=== PATIENT | female | born 1945 | race Caucasian/White ===

== ENCOUNTER 2016-08-29 09:52 | Day surgery (SDC) | payer MEDICARE ==
[~2016-08-29 09:52] MED LIST: Acetaminophen TAB* 325 MG PO PRN; Buffered Lidocaine 1% SYRIN* 3 ML/SYR SYRINGE INTRADERM ONE
[2016-08-29] MEDS ORDERED: Midazolam* 1 MG/ML 2 ML VIAL (2 MG) ONE (12:56)
[2016-08-29 13:46] VITALS: BP 110/61
--- NOTE | 2016-08-29 16:09 | OP ---
DATE OF OPERATION: 08/29/2016 - [facility] DATE OF : 1945. SURGEON: Christiano Raya M.D. PREOPERATIVE DIAGNOSIS: Cataract right eye. POSTOPERATIVE DIAGNOSIS: Cataract right eye. OPERATIVE PROCEDURE: Phacoemulsification right eye with IOL. DESCRIPTION OF PROCEDURE: The patient was brought to the operating room after being given 1/2% Alcaine with epinephrine drops in the preoperative area. The eye was prepped and draped in the usual sterile fashion. Sterile drape and eyelid speculum were placed. Again, topical 1/2% Alcaine with epinephrine was given. A paracentesis incision was made at the 9 o'clock position with the No.75 blade. Clear cornea incision 2.2 x 2.2-mm was created at the 12 o'clock position starting at the anterior limbus using the 2.2-mm keratome. The anterior chamber was irrigated with 0.4 mL of 1% non-preservative intracameral lidocaine and filled with DisCoVisc. A capsulorrhexis was completed using the cystotome and the Utrata forceps. Hydrodissection was performed with balanced salt solution. The lens nucleus was removed with the Phacoemulsification handpiece without incident. Cortex was removed with the irrigation-aspiration handpiece. The capsular bag was re-inflated using DisCoVisc and an [id number] 15 implant was inserted with the shooter. The irrigation-aspiration handpiece was used to remove all residual DisCoVisc. The eye was refilled with balanced salt solution and the wound checked and found to be watertight. Topical Maxitrol drops were given. [id number]/[facility] #: [id number] [facility]
== END 2016-08-29 13:50 | disposition home or self-care (01) ==
LOC: OREAST 09:52
PROVIDERS: ATTEND Specialist
DX: H25.811 Combined forms of age-related cataract, right eye (principal); H43.813 Vitreous degeneration, bilateral; E03.9 Hypothyroidism, unspecified; Z85.3 Personal history of malignant neoplasm of breast
CPT/HCPCS: J2250; V2632

== ENCOUNTER 2016-09-12 08:16 | Day surgery (SDC) | payer MEDICARE ==
[~2016-09-12 08:16] MED LIST changes: -Buffered Lidocaine 1% SYRIN* 3 ML/SYR SYRINGE INTRADERM ONE; +Buffered Lidocaine 1% SYRIN* 5 ML/SYR SYRINGE INTRADERM ONE; +Cyclopentolate 1% OPTH.SOL* 2 ML BTL ONE; +Flurbiprofen 0.03% OPTH.SOL* 2.5 ML BTL ONE; +Lidocaine 1% MPF* 2 ML VIAL ONE; +Lidocaine 2% EPI 1:200000 MPF* 20 ML VIAL ONE; +Neomycin/Polymy/Dex OPTH.SUSP* MAXITROL 0.1% 5 ML ONE; +Phenylephrine 2.5% OPTH.SOL* 2 ML BTL ONE; +Povidone Iodine 5% OPTH* 30 ML BTL ONE; +Proparacaine 0.5% OPHTH.SOL* 15 ML BTL ONE; +acetaZOLAMIDE TAB* 250 MG ONE
[2016-09-12] MEDS ORDERED: Flurbiprofen 0.03% OPTH.SOL* 2.5 ML BTL ONE (09:37)
[2016-09-12] MEDS ORDERED: Proparacaine 0.5% OPHTH.SOL* 15 ML BTL ONE (09:37)
[2016-09-12] MEDS ORDERED: Povidone Iodine 5% OPTH* 30 ML BTL ONE (09:37)
[2016-09-12] MEDS ORDERED: acetaZOLAMIDE TAB* 250 MG ONE (09:37)
[2016-09-12] MEDS ORDERED: Neomycin/Polymy/Dex OPTH.SUSP* MAXITROL 0.1% 5 ML ONE (09:37)
[2016-09-12] MEDS ORDERED: Lidocaine 1% MPF* 2 ML VIAL ONE (09:37)
[2016-09-12] MEDS ORDERED: Cyclopentolate 1% OPTH.SOL* 2 ML BTL ONE (09:37)
[2016-09-12] MEDS ORDERED: Phenylephrine 2.5% OPTH.SOL* 2 ML BTL ONE (09:37)
[2016-09-12] MEDS ORDERED: Lidocaine 2% EPI 1:200000 MPF* 20 ML VIAL ONE (09:37)
[2016-09-12] MEDS ORDERED: Midazolam* 1 MG/ML 2 ML VIAL (2 MG) ONE (10:19)
[2016-09-12 10:53] VITALS: BP 131/71
--- NOTE | 2016-09-13 02:32 | OP ---
OPERATIVE NOTE: DATE OF OPERATION: 09/12/16 - [facility] [[email or web address]] DATE OF : [birth year] SURGEON: Christiano Raya M.D. PREOPERATIVE DIAGNOSIS: Cataract, left eye. POSTOPERATIVE DIAGNOSIS: Cataract, left eye. OPERATIVE PROCEDURE: Phacoemulsification, right eye, with IOL. DESCRIPTION OF PROCEDURE: The patient was brought to the operating room after being given 1/2% Alcaine with epinephrine drops in the preoperative area. The eye was prepped and draped in the usual sterile fashion. Sterile drape and eyelid speculum were placed. Again, topical 1/2% Alcaine with epinephrine was given. A paracentesis incision was made at the 3 o'clock position with the No.75 blade. Clear cornea incision 2.2 x 2.2-mm was created at the 6 o'clock position starting at the anterior limbus using the 2.2-mm keratome. The anterior chamber was irrigated with 0.4 mL of 1% non-preservative intracameral lidocaine and filled with DisCoVisc. A capsulorrhexis was completed using the cystotome and the Utrata forceps. Hydrodissection was performed with balanced salt solution. The lens nucleus was removed with the Phacoemulsification handpiece without incident. Cortex was removed with the irrigation-aspiration handpiece. The capsular bag was re-inflated using DisCoVisc and an [id number] 15.5 implant was inserted with the shooter. The irrigation-aspiration handpiece was used to remove all residual DisCoVisc. The eye was refilled with balanced salt solution and the wound checked and found to be watertight. Topical Maxitrol drops were given. [id number]/[facility] #: [id number] [facility]
== END 2016-09-12 11:00 | disposition home or self-care (01) ==
LOC: OREAST 08:16
PROVIDERS: ATTEND Specialist
DX: H25.812 Combined forms of age-related cataract, left eye (principal); H43.813 Vitreous degeneration, bilateral; Z85.3 Personal history of malignant neoplasm of breast; E03.9 Hypothyroidism, unspecified; M19.90 Unspecified osteoarthritis, unspecified site
CPT/HCPCS: A9270-GY; J2250; V2632

== ENCOUNTER 2018-01-07 06:25 | Day surgery (SDC) | payer MEDICARE ==
--- NOTE | 2017-12-30 09:13 | HP ---
AMENDED REPORT NOW INCLUDES COSIGNER DESIGNATION - ESIGNED BEFORE ADJUSTMENTS PREOPERATIVE HISTORY AND PHYSICAL: DATE OF SURGERY/ADMISSION: 01/07/18 ATTENDING SURGEON: Nazia Mckeon MD * (DICTATED BY ZEE BILLINGSLEY) PROCEDURE: Left long finger trigger release, left wrist carpal tunnel release, right index finger trigger release. CHIEF COMPLAINT: Left long finger triggering, left wrist carpal tunnel syndrome , right index finger triggering. HISTORY OF PRESENT ILLNESS: This is a 72-year-old female who has had problems with trigger fingers on both her left and right hand involving the long finger on the left and the index finger on the right. She has received cortisone injections in the past with some improvement; however, the symptoms have recurred. She has also been experiencing numbness and tingling in her left hand for nearly 5 years now consistent with carpal tunnel syndrome. She had a carpal tunnel release done on the right back in September 2015 and did very well with that. She is now interested in pursuing surgical intervention for all 3 of these problems. PAST MEDICAL HISTORY: 1. Hypothyroidism. 2. History of breast cancer with radiation therapy. PAST SURGICAL HISTORY: 1. Right carpal tunnel release. 2. Right middle finger trigger release. 3. Right shoulder surgery. 4. Appendectomy. 5. Breast lumpectomy and lymph node excision. 6. Left shoulder rotator cuff repair. CURRENT MEDICATIONS: 1. Aspirin 81 mg daily. 2. Fish oil 500 mg twice a day. 3. Levothyroxine sodium 75 mcg daily. 4. Multivitamin once a day. ALLERGIES: No known drug allergies. FAMILY HISTORY: Unknown as the patient was adopted. SOCIAL HISTORY: The patient is retired. 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 She is a former smoker, she quit approximately 40 years ago. Prior to that she smoked a half a pack a day for approximately 20 years. She denies recreational drug use. She does drink alcohol on occasion. REVIEW OF SYSTEMS: Negative for general, cephalic, cardiovascular, respiratory , GI, , other musculoskeletal, integumentary, endocrine, neurologic, hematologic symptoms. Infectious Disease is negative for history of MRSA, hepatitis C, HIV. No known anesthesia problems in the past. PHYSICAL EXAMINATION GENERAL: Well-developed, well nourished 72-year-old female in no acute distress. VITAL SIGNS: Height 5 feet 4.5 inches, weight 149 pounds. Pulse rate 76, blood pressure 120/72. HEENT: Normocephalic, atraumatic. Pupils are equal, round and reactive to light and accommodation. Extraocular movements are intact. NECK: Supple. No palpable lymph nodes. Throat is clear. PULMONARY: Lungs are clear to auscultation bilaterally. No wheezes, rales or rhonchi. CARDIOVASCULAR: Regular rate and rhythm. S1, S2. No murmurs, rubs or gallops. No edema. ABDOMEN: Positive bowel sounds. Soft, nontender. MUSCULOSKELETAL: On exam of her left hand, she has no visible muscular wasting. She has tenderness to palpation at the A1 mandi of the long finger and active triggering with range of motion. She has a positive median nerve compression test. Otherwise, she has good motion in her fingers and wrists. Sensation is intact to light touch throughout the hand. On exam of her right hand she has tenderness to palpation at the A1 mandi of the right index finger and triggering with range of motion. Neurovascular function is intact. NEUROLOGICAL: Alert and oriented x3. Cranial nerves II through XII are intact. Sensation is intact to light touch. IMPRESSION: Left long finger trigger finger, left wrist carpal tunnel syndrome and right index finger trigger finger. PLAN: The patient is scheduled to undergo a left long finger trigger release, left wrist carpal tunnel release, right index finger trigger release with Dr. Mckeon on 01/07/18. She will return to the office 10 days postop for followup and suture removal. A prescription for Ultracet was e-scribed to the patient's pharmacy for postoperative pain management. ZEE BILLINGSLEY [id number]/[facility] #: [id number] [facility]
[~2018-01-07 06:25] MED LIST changes: -Acetaminophen TAB* 325 MG PO PRN; +Buffered Lidocaine 0.9% SYRIN* 5 ML/SYR SYRINGE INTRADERM ONE; -Buffered Lidocaine 1% SYRIN* 5 ML/SYR SYRINGE INTRADERM ONE; -Cyclopentolate 1% OPTH.SOL* 2 ML BTL ONE; +Dexamethasone IV* 4 MG/ML 1 ML (4 MG) ONE; +Dexamethasone TAB* 4 MG PO ONE; +DiMENhydriNATE IV* 50 MG/ML VIAL IV PUSH PRN; +Famotidine IV* 10 MG/ML 2 ML (20 mg) IV ONE; +Famotidine IV* 10 MG/ML 2 ML (20 mg) ONE; -Flurbiprofen 0.03% OPTH.SOL* 2.5 ML BTL ONE; -Lidocaine 1% MPF* 2 ML VIAL ONE; -Lidocaine 2% EPI 1:200000 MPF* 20 ML VIAL ONE; +Naloxone* 0.4 MG/ML 1 ML VIAL IV PRN; -Neomycin/Polymy/Dex OPTH.SUSP* MAXITROL 0.1% 5 ML ONE; +Ondansetron ODT TAB* 4 MG ONE; +Ondansetron TAB* 4 MG PO ONE; +PROCHLORPERAZINE INJ 5 MG/ML 2 ML VIAL IV PRN; -Phenylephrine 2.5% OPTH.SOL* 2 ML BTL ONE; -Povidone Iodine 5% OPTH* 30 ML BTL ONE; -Proparacaine 0.5% OPHTH.SOL* 15 ML BTL ONE; -acetaZOLAMIDE TAB* 250 MG ONE; +fentaNYL* 50 MCG/ML 2 ML VIAL (100 MCG VIAL) IV PRN; +oxyCODONE/Acetamin 5/325 MG* TAB PO PRN
[2018-01-07] MEDS ORDERED: Dexamethasone TAB* 4 MG ONE (06:36)
[2018-01-07] MEDS ORDERED: Lidocaine 1% INJ* 10 MG/ML 30 ML SDV ONE (07:07)
[2018-01-07] MEDS ORDERED: KETAMINE HCL* 50 MG/ML 10 ML VIAL ONE (07:14)
[2018-01-07] MEDS ORDERED: fentaNYL* 50 MCG/ML 2 ML VIAL (100 MCG VIAL) ONE (07:14)
[2018-01-07] MEDS ORDERED: Midazolam* 1 MG/ML 5 ML VIAL (5 MG) ONE (07:15)
[2018-01-07] MEDS ORDERED: Ketorolac INJ* 30 MG/ML 1 ML VIAL ONE (07:46)
[2018-01-07] MEDS ORDERED: Lidocaine 2% PF * 5 ML VIAL ONE (07:46)
[2018-01-07] MEDS ORDERED: Propofol* 10 MG/ML 20 ML BTL IV PUSH ONE (07:46)
[2018-01-07 09:05] VITALS: BP 151/77
--- NOTE | 2018-01-08 01:57 | OP ---
DATE OF OPERATION: 01/07/18 - [facility] DATE OF : [birth year] SURGEON: Nazia Mckeon MD RN MENTAL HEALTH: ZEE Flores ANESTHESIA: Local MAC. PRE-OP DIAGNOSES: 1. Left long finger trigger finger. 2. Left carpal tunnel syndrome. 3. Right index finger trigger finger. POST-OP DIAGNOSES: 1. Left long finger trigger finger. 2. Left carpal tunnel syndrome. 3. Right index finger trigger finger. OPERATIVE PROCEDURE: Left long finger trigger release, left carpal tunnel release, right index finger trigger release. INDICATION FOR PROCEDURE: Silvina is a 72-year-old woman who has triggering and locking of her left middle and right index fingers and numbness and tingling in the left median nerve distribution. She presents for trigger finger releases, left long and right index and left carpal tunnel release. ESTIMATED BLOOD LOSS: Zero. TOURNIQUET TIME ON THE RIGHT: About 5 minutes. TOURNIQUET TIME ON THE LEFT: About 15 minutes. DESCRIPTION OF PROCEDURE: The patient was brought to the operating room, was given a sedation anesthetic and infiltration of total 20 cc of 1% plain lidocaine in the palm of both hands. The skin of both hands and forearms were prepped and draped in the usual sterile fashion. The left hand and forearm were exsanguinated and the tourniquet elevated to 250 mmHg. A transverse incision was made centered over the middle finger A1 mandi and was dissected through the subcutaneous tissue down to the A1 mandi. The digital nerve vascular bundles were retracted by the surgical supply assistant, Serenity Palma. The A1 mandi was incised longitudinally completely releasing the flexor tendons, which were in good condition. The wound was irrigated and the skin edges reapproximated with 4-0 nylon suture. Next, a longitudinal incision was made in the palm in line with ring finger. We dissected sharply through the subcutaneous tissue down through the transverse carpal ligament. The ligament was divided sharply with a knife and then more proximally with the scissors. The nerve was dissected free from surrounding tissue and there is an area of moderate compression in the mid portion of the ligament. The wound was irrigated and the skin edges reapproximated with 4-0 nylon suture. The wound was dressed with Xeroform, 4x4, Webril, and an Wilmer wrap. The tourniquet was released. Next, the right hand and forearm were exsanguinated and the tourniquet elevated to 250 mmHg. A transverse incision was made over the A1 mandi of the right index finger. We dissected bluntly through the subcutaneous tissue down to the A1 mandi. The mandi was incised longitudinally completely releasing the flexor tendons, which were in good condition. The wound was irrigated and the skin edges were reapproximated with 4-0 nylon suture. The wound was dressed with Xeroform, 4x4, Webril, and an Wilmer wrap. The patient tolerated the procedure well and was brought to the recovery room in good condition. [id number]/[facility] #: [id number] ARNALDO
== END 2018-01-07 09:06 | disposition home or self-care (01) ==
LOC: OREAST 06:25
PROVIDERS: ATTEND Orthopaedic Surgery
DX: M65.332 Trigger finger, left middle finger (principal); M65.321 Trigger finger, right index finger; G56.02 Carpal tunnel syndrome, left upper limb; E03.9 Hypothyroidism, unspecified
CPT/HCPCS: A9270-GY; J1100; J1885; J2250; J2704; J3010; J8540

== ENCOUNTER 2019-01-09 12:20 | Day surgery (SDC) | payer MEDICARE ==
--- NOTE | 2019-01-08 09:41 | HP ---
AMENDED REPORT NOW INCLUDES DESIGNATED COSIGNER PREOPERATIVE HISTORY AND PHYSICAL: DATE OF ADMISSION/SURGERY: 01/09/19 DATE OF OFFICE VISIT/ENCOUNTER: 01/07/19 ATTENDING SURGEON: Nazia Mckeon MD * (DICTATED BY ZEE BILLINGSLEY) PROCEDURE: Left ring and pinky finger trigger release. HISTORY OF PRESENT ILLNESS: This is a 73-year-old female who has had history of trigger fingers and has had cortisone injections and surgeries in the past for trigger finger releases. Currently, she is complaining of triggering of the left ring and pinky fingers. She has had an injection in the past for the ring finger, but the symptoms have now recurred and she is also having triggering of the pinky finger. She also has a little bit of clicking with her middle finger as well that was released in the past, but she is having no catching or locking of the middle finger. She has consented to proceed with surgical intervention for the left ring and pinky fingers. PAST MEDICAL HISTORY: 1. Hypothyroidism. 2. History of breast cancer with radiation therapy. PAST SURGICAL HISTORY: 1. Bilateral wrist carpal tunnel releases. 2. Right middle finger trigger release. 3. Right shoulder surgery. 4. Appendectomy. 5. Breast lumpectomy and lymph node excision. 6. Left shoulder rotator cuff repair. 7. Left long finger trigger release. 8. Right index finger trigger release. CURRENT MEDICATIONS: 1. Fish oil 500 mg twice a day. 2. Levothyroxine sodium 75 mcg a day. 3. Multivitamin daily. ALLERGIES: No known drug allergies. FAMILY HISTORY: Unknown as the patient was adopted. SOCIAL HISTORY: The patient is retired. 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 She is a former smoker, she quit approximately 40 years ago. Prior to that she smoked a half a pack a day for approximately 20 years. She denies recreational drug use. She drinks alcohol on occasion. REVIEW OF SYSTEMS: Negative for general, cephalic, cardiovascular, respiratory , GI, , other musculoskeletal, integumentary, endocrine, neurologic, and hematologic symptoms. Infectious Disease: Negative for history of MRSA, hepatitis C, HIV. No known anesthesia problems in the past. PHYSICAL EXAMINATION General: A well-developed, well-nourished 73-year-old female, in no acute distress. VITAL SIGNS: Height 5 feet 4 inches, weight 145 pounds, pulse rate 68, blood pressure 122/68. HEENT: Normocephalic, atraumatic. Pupils are equal, round, and reactive to light and accommodation. Extraocular movements are intact. Throat is clear. NECK: Supple. No palpable lymph nodes. PULMONARY: Lungs are clear to auscultation bilaterally. No wheezes, rales, or rhonchi. CARDIOVASCULAR: Regular rate and rhythm. S1, S2. No murmurs, rubs, or gallops. No edema. ABDOMEN: Positive bowel sounds, soft, nontender. MUSCULOSKELETAL: On inspection of the left hand, there is visible swelling along the length of the ring finger. There is tenderness to palpation at the A1 pulleys of the ring finger and the pinky finger. No tenderness at the A1 mandi of the long finger. She cannot make a full fist. She has triggering of the ring finger. Neurovascular function is intact. IMPRESSION: Trigger finger, left ring and small fingers. PLAN: The patient is scheduled to undergo a left ring and pinky finger, trigger finger release with Dr. Mckeon on 01/09/19. She will return to the office in 10 days postop for followup and suture removal. A prescription for Ultracet was e- scribed to the patient's pharmacy for postoperative pain management. ZEE BILLINGSLEY [id number]/[facility] #: [id number] MTDDes
[~2019-01-09 12:20] MED LIST changes: -Buffered Lidocaine 0.9% SYRIN* 5 ML/SYR SYRINGE INTRADERM ONE; +Buffered Lidocaine 1% SYRIN* 1 ML/SYRINGE INTRADERM ONE; -Dexamethasone IV* 4 MG/ML 1 ML (4 MG) ONE; -Dexamethasone TAB* 4 MG PO ONE; -DiMENhydriNATE IV* 50 MG/ML VIAL IV PUSH PRN; -Famotidine IV* 10 MG/ML 2 ML (20 mg) IV ONE; -Famotidine IV* 10 MG/ML 2 ML (20 mg) ONE; +Lactated Ringers 1000 ML Bag* 1,000 ML IV SCH; -Ondansetron ODT TAB* 4 MG ONE; -Ondansetron TAB* 4 MG PO ONE; -PROCHLORPERAZINE INJ 5 MG/ML 2 ML VIAL IV PRN; -fentaNYL* 50 MCG/ML 2 ML VIAL (100 MCG VIAL) IV PRN; -oxyCODONE/Acetamin 5/325 MG* TAB PO PRN
[2019-01-09] MEDS ORDERED: Lidocaine 1% INJ* 10 MG/ML 30 ML SDV ONE (13:35)
[2019-01-09] MEDS ORDERED: Midazolam* 1 MG/ML 2 ML VIAL (2 MG) ONE (13:49)
[2019-01-09] MEDS ORDERED: Propofol* 10 MG/ML 20 ML BTL ONE (13:51)
[2019-01-09 15:11] VITALS: BP 101/59
--- NOTE | 2019-01-09 21:08 | OP ---
DATE OF OPERATION: 01/09/19 [facility] DATE OF : 41 SURGEON: Nazia Mckeon MD INFORMATION ENGINEER: ZEE Flores ANESTHESIA: Local MAC. PRE-OP DIAGNOSIS: Triggering of the left ring and small fingers. POST-OP DIAGNOSIS: Triggering of the left ring and small fingers. OPERATIVE PROCEDURE: Trigger finger release, left ring and small fingers. ESTIMATED BLOOD LOSS: Zero. TOURNIQUET TIME: Approximately 15 minutes. INDICATIONS FOR PROCEDURE: Silvina is a 73-year-old woman who has had several trigger fingers. She is currently having triggering of the ring and small fingers, and has failed conservative treatment with cortisone injections and presents for trigger finger release, left ring and small fingers. She has had a middle finger trigger release in the past and is having a slight amount of clicking as well, so this will be explored as well. DESCRIPTION OF PROCEDURE: The patient was brought to the operating room, was given a sedation anesthetic and a local infiltration of 10 cc of 1% plain lidocaine in the palm of her left hand. The skin of her left hand and forearm was prepped and draped in the usual sterile fashion. The hand and forearm were exsanguinated and the tourniquet elevated to 250 mmHg. A transverse incision was made centered over the A1 pulleys of the ring and small fingers. We dissected through the subcutaneous tissue down to the A1 pulleys. The middle finger A1 mandi was explored. It was indeed completely released, but there was some tenosynovitis surrounding the tendon and this was debrided. The A1 pulleys of the ring and small fingers were incised longitudinally completely releasing the tendons, which were in good condition. There was a small amount of tenosynovitis and this was debrided. The wound was irrigated and skin edges were reapproximated with 4-0 nylon suture. The wound was dressed with Xeroform, 4x4, Webril, and an Wilmer wrap. The patient tolerated the procedure well and was brought to the recovery room in good condition. [id number]/[facility] #: [id number] [facility]
== END 2019-01-09 14:59 | disposition home or self-care (01) ==
LOC: OREAST 12:20
PROVIDERS: ATTEND Orthopaedic Surgery
DX: M65.342 Trigger finger, left ring finger (principal); M65.352 Trigger finger, left little finger; E03.9 Hypothyroidism, unspecified; Z85.3 Personal history of malignant neoplasm of breast; Z87.891 Personal history of nicotine dependence
CPT/HCPCS: J2250; J2704